=== PATIENT | female | born 1935 | race Caucasian/White ===

== ENCOUNTER 2017-03-08 06:56 | Day surgery (SDC) | payer OTHER ==
[2017-03-04 17:08] LABS: HEMATOCRIT 40.7 % (36.0-48.0)
[2017-03-04 17:19] LABS: BUN (BLOOD UREA NITROGEN) 16 MG/DL (6-23); CALCIUM, SERUM 9.1 MG/DL (8.5-10.4); CHLORIDE, SERUM 105 MMOL/L (96-112); CO2 (CARBON DIOXIDE) 30 MMOL/L (24-34); CREATININE 1.29 MG/DL (0.55-1.02); GFR AFRICAN AMERICAN 45 ML/MIN (>=60); GFR NON AFRICAN AMERICAN 39 ML/MIN (>=60); GLUCOSE, SERUM 94 MG/DL (60-99); POTASSIUM, SERUM 3.9 MMOL/L (3.5-5.3); SODIUM, SERUM 145 MMOL/L (135-148)
--- NOTE | ~2017-03-08 | OP ---
Record Of Operation [facility] [address] [place]. [address] NAME: FADI TSOKES : 35 STATUS : [place] [facility] [place] [facility] [place] PAT#: [id number] AGE: 82 ADM/REG DATE : 03/08/17 MR#: [id number] REPORT SERV DATE: 03/08/17 DICTATED BY: JULIAN CASTILLO DATE: 03/08/17 REPORT STATUS : Draft TRANSCRIBED BY: MODL DATE: 03/08/17 DATE OF PROCEDURE: 03/08/2017 PREOPERATIVE DIAGNOSES: 1. Recurrent x2 left inguinal hernia. 2. Hypertension. 3. Hyperlipidemia. 4. Chronic pain syndrome. 5. Hypothyroidism. POSTOPERATIVE DIAGNOSES: 1. Recurrent x2 left direct inguinal hernia. 2. Hypertension. 3. Hyperlipidemia. 4. Chronic pain syndrome. 5. Hypothyroidism. PROCEDURE: Robotic recurrent x2 reducible direct inguinal hernia with mesh. ANESTHESIA: General. SURGEON: Julian Castillo M.D. METAL NUMERICAL TOOL PROGRAMMER: Jessica. COMPLICATIONS: None. DRAINS: None. ESTIMATED BLOOD LOSS: 20 mL. FINDINGS: The patient was noted to have a reducible direct left inguinal hernia. OPERATIVE TECHNIQUE: The patient was brought to the operating room and placed on the table in supine position. She had preoperative IV antibiotics. She voided prior to the procedure. She had sequential hose in place. She underwent general endotracheal anesthesia and was prepped and draped in sterile fashion and a time-out was completed. Local anesthesia was instilled through the supraumbilical skin and an incision was made for a 12 mm trocar. The skin and fascia were elevated and a Veress needle was inserted and a water drop test safely performed. A 12 mm Visiport trocar was placed under direct visualization. There was no evidence of Veress or trocar injury. The patient was then placed in Trendelenburg and two upper abdominal lateral 8 mm trocars were placed under direct visualization. The robotic trocars had been placed to the background for correct depth. The patient had no evidence of any scarring of the pelvis. She had recurrent direct inguinal hernia on exam visually. There was no evidence of right inguinal hernia or femoral hernias. The patient then had the robot brought to the patient's left side and it was Record Of Operation [facility] [address] [place]. [address] NAME: FADI STOKES : 35 STATUS : [place] [facility] [place] [facility] [place] PAT#: [id number] AGE: 82 ADM/REG DATE : 03/08/17 MR#: [id number] REPORT SERV DATE: 03/08/17 DICTATED BY: JULIAN CASTILLO DATE: 03/08/17 REPORT STATUS : Draft TRANSCRIBED BY: EDILSON DATE: 03/08/17 docked. The 30-degree up-scope was used and the fenestrated ProGrasp was in the left hand and scissor in the right hand. The peritoneal flap was taken down from the median umbilical ligament toward the anterior iliac spine. The blunt dissection ensued medially in the preperitoneal space until Francis's ligament, iliopubic tract, and transversus arch were identified. Laterally, the space was also taken down to the iliopubic tract and transversus arch were identified. The peritoneum under direct visualization was then reduced to the level of the direct defect. It was carefully dissected away and reduced with scissors and traction with no difficulty. It was approximately 8-10 mm defect. All of the incarcerated preperitoneal fat was then reduced in the direct space. The peritoneum was then carefully dissected away from the previous mesh plug with care taken not to injure the iliac artery and vein which were clearly identified and preserved. The patient had the round ligament previously ligated. The peritoneum was then completely reduced away from the previous mesh until the entire peritoneum was reduced away from the operative field and there was no evidence of any other hernias. At this juncture, the previously placed ProGrip mesh and suture were brought to the operative field and positioned adequately. The mesh was secured with a green navneet medially, and the mesh was then secured over the entire myopectineal space. The mesh was secured to the posterior wall with gentle pressure from medial to lateral that covered approximately 2 cm below the Francis's ligament laterally to the anterior iliac spine. The pneumoperitoneum was then reduced for approximately 3-4 mm and the peritoneum was reapproximated using a running V-Loc suture without difficulty. Examination of the abdomen revealed no evidence of any other abnormalities. All the instruments and trocars were removed under direct visualization. The anterior fascia was reapproximated using a running looped Vicryl suture. The skin edges were reapproximated using interrupted subcuticular Monocryl sutures. Dermabond was applied. She was extubated and taken to the recovery room in stable condition. All sponge and needle counts were reported correct. JOE/MODL Julian Castillo M.D. / [id number] CC: Ladarius Means M.D.
[~2017-03-08 06:56] MED LIST: ASAB PO; DURA50 TOP; LOFIB160 PO; MOMUD PO; MULTIVIT/MIN PO; NORCO1 TAB PO; PRAVACHOL40 MG PO; PRILO PO; PRIN5 PO; ROXICODONE15 MG PO; SYN075 PO; TUMSROLL PO; [UNRECOGNIZED DRUG - OTHER] PO; [UNRECOGNIZED DRUG - OTHER] PO
== END 2017-03-08 19:16 | disposition home or self-care (01) ==
LOC: SDC 06:56
PROVIDERS: Surgery
PROC: 0YU60JZ Supplement Left Inguinal Region with Synthetic Substitute, Open Approach (ICD-10-PCS; principal; 2017-03-08 07:00)
DX: K40.91 Unilateral inguinal hernia, without obstruction or gangrene, recurrent (principal); I10 Essential (primary) hypertension; E78.5 Hyperlipidemia, unspecified; E03.9 Hypothyroidism, unspecified; I48.0 Paroxysmal atrial fibrillation; E78.00 Pure hypercholesterolemia, unspecified; Z88.0 Allergy status to penicillin; Z88.8 Allergy status to other drugs, medicaments and biological substances; Z90.710 Acquired absence of both cervix and uterus; Z79.82 Long term (current) use of aspirin; Z79.899 Other long term (current) drug therapy; Z86.73 Personal history of transient ischemic attack (TIA), and cerebral infarction without residual deficits; Z87.891 Personal history of nicotine dependence
CPT/HCPCS: 80048; 85014; 85018; 93005; C1781; J0330; J1170; J2405; J2710; J3010; J3370; P9045